=== PATIENT | female | born 1975 | race Caucasian/White ===

== ENCOUNTER → 2024-01-18 14:17 | Outpatient (REF) | payer OTHER, SELFPAY | LOC: WDC 14:17 | PROVIDERS: ATTENDING PHYSICIAN Obstetrics & Gynecology; FAMILY PHYSICIAN Nurse Practitioner | DX: Z12.31 Encounter for screening mammogram for malignant neoplasm of breast (principal) | CPT/HCPCS: 77063; 77067 ==

== ENCOUNTER → 2024-03-24 07:54 | Outpatient (REF) | payer OTHER, SELFPAY | LOC: WDC 07:54 | PROVIDERS: ATTENDING PHYSICIAN Obstetrics & Gynecology; FAMILY PHYSICIAN Nurse Practitioner | DX: R92.2 Inconclusive mammogram (principal); R92.8 Other abnormal and inconclusive findings on diagnostic imaging of breast | CPT/HCPCS: 76641 ==

== ENCOUNTER → 2024-07-20 09:49 | Outpatient (REF) | payer OTHER, SELFPAY | LOC: WDC 09:49 | PROVIDERS: ATTENDING PHYSICIAN Obstetrics & Gynecology; FAMILY PHYSICIAN Internal Medicine | DX: N63.10 Unspecified lump in the right breast, unspecified quadrant (principal); N63.12 Unspecified lump in the right breast, upper inner quadrant | CPT/HCPCS: 76642; 77061; 77065 ==

== ENCOUNTER → 2025-01-20 11:43 | Outpatient (REF) | payer BC, SELFPAY | LOC: WDC 11:43 | PROVIDERS: ATTENDING PHYSICIAN Internal Medicine | DX: Z12.31 Encounter for screening mammogram for malignant neoplasm of breast (principal) | CPT/HCPCS: 77063; 77067 ==

== ENCOUNTER → 2025-07-05 13:49 | Outpatient (REF) | payer BC, SELFPAY | LOC: WDC 13:49 | PROVIDERS: ATTENDING PHYSICIAN Internal Medicine | DX: R92.30 Dense breasts, unspecified (principal) | CPT/HCPCS: 76641 ==